=== PATIENT | male | born 1985 | race Two or more races ===

== ENCOUNTER 2022-07-29 17:23 | Emergency (ER) | payer OTHER ==
[~2022-07-29] VITALS: Ht 165.1 cm; Wt 94.8 kg
[2022-07-29] MEDS ORDERED: APIDRA100 UNIT/1 SQ (17:36)
== END 2022-07-29 18:02 | disposition home or self-care (01) ==
LOC: ER 17:23
DX: E10.9 Type 1 diabetes mellitus without complications (principal); Z96.41 Presence of insulin pump (external) (internal)